=== PATIENT | male | born 1945 | race Caucasian/White ===

== ENCOUNTER → 2016-11-04 | Day surgery (SDC) | payer OTHER ==
[~2016-11-04] VITALS: Ht 170.2 cm; Wt 94.5 kg
[~2016-11-04] MED LIST: ACLI1AER3 PO; ALBU1AER9 PO; ASPCH81X PO; ATROPINE SULFATE 0.1 MG/ML 5ML SYR IV PRN; ATV/1 PO; EpHEDrine SULFATE INJ 50 MG/ML AMP IV PRN; FINA5TAB4 PO; FURO40TA3 PO; IPRA1AER2 INH; IPRASOL4 INH; LIDOCAINE HCL 2% 2 ML VIAL (20MG/ML) ONE; LISI20TA3 PO; METF850T PO; METO25TA3 PO; MONT1TAB3 PO; NVLGI7030 SC; OMEP20CA59 PO; OPTIRAY 320 IV PRN; PRED10TA PO; PROPOFOL IV EMULSION 10 MG/ML 20 ML VIAL IV ONE; SERT25TA PO; SIMV40TA4 PO; SODIUM CHLORIDE 0.9% 500ML 500 ML IV ONE; SUCCINYLCHOLINE CHLORIDE 20 MG/ML 10 ML VIAL IV ONE; TAMS0.4C38 PO
[2016-11-04 09:42] VITALS: Ht 170.2 cm; Wt 94.5 kg
--- NOTE | 2016-11-04 10:28 | Endo History and Physical ---
History & Physical Date of Service: Nov 04, 2016. Chief Complaint: Referring Physician: Francisca History of Present Illness abdominal pain for EGD Past Medical History Diabetes, Anxiety, High Cholesterol, Sleep Apnea, Hypertension, COPD, Other Past Surgical History Hx Cardiac Surgery: No Hx Internal Defibrillator: No Hx Pacemaker: No Hx Abdominal Surgery: No Hx of Implantable Prosthesis: No Hx Post-Op Nausea and Vomiting: No Hx Cancer Surgery: No Hx Thoracic Surgery: No Hx Orthopedic: No (back/hip) Hx Urinary Tract Surgery: No Family History None Social History Smoking Status: Former Smoker Hx Substance Use: No Hx Alcohol Use: No Allergies Coded Allergies: Codeine (Verified Allergy, Mild, from [facility] record, 11/04/16) Morphine and Related (Verified Allergy, Mild, from [facility] records, 11/04) Current Medications Reported Home Medications Medications Dose Route/Sig Max Daily Dose Days Date Category Toprol Xl (Metoprolol Succinate) 25 Mg Tabcr 1 Tab PO DAILY 30 05/29/15 Reported Duoneb (Ipratropium-Albuterol) 3 Ml Nebu 1 Treatment INH Q4H 05/23/15 Reported Combivent Respimat (Ipratropium-Albuterol) 1 Aer Aer 1 Puffs INH QID 05/23/15 Reported Zoloft (Sertraline HCl) 25 Mg Tab 25 Mg PO DAILY 05/23/15 Reported Tudorza Pressair (Aclidinium [place]) 400 Mcg/Act Aer 1 Inha PO BID 05/23/15 Reported Proair Hfa (Albuterol Sulfate) 108 Mcg/ Aer 1 Inhaler PO PRN 05/23/15 Reported Zocor (Simvastatin) 40 Mg Tab 1 Tab PO HS 30 05/23/15 Reported Prednisone 10 Mg Tab 10 Mg PO 05/23/15 Reported Aspirin Chewable (Aspirin) 81 Mg Chew 81 Mg PO DAILY 05/23/15 Reported Prilosec (Omeprazole) 20 Mg Capcr 1 Cap PO DAILY 90 05/23/15 Reported Proscar (Finasteride) 5 Mg Tab 1 Tab PO DAILY 30 05/23/15 Reported Novolog Mix 70/30 (Insulin Aspart Prota 70%/Aspart 30%) Susp 20 SC ACPM 05/23/15 Reported Novolog Mix 70/30 (Insulin Aspart Prota 70%/Aspart 30%) Susp 26 SC ACAM 05/23/15 Reported Singulair (Montelukast Sodium) 10 Mg Tab 1 Tab PO DAILY 90 05/23/15 Reported Lasix (Furosemide) 40 Mg Tab 1 Tab PO BID 30 05/23/15 Reported Flomax (Tamsulosin Hcl) 0.4 Mg Cap 1 Cap PO DAILY 30 05/23/15 Reported Glucophage (Metformin Hcl) 850 Mg Tab 850 Mg PO TID 05/23/15 Reported Ativan (Lorazepam) 1 Mg Tab 1 Mg PO TID 05/23/15 Reported Prinivil (Lisinopril) 20 Mg Tab 1 Tab PO DAILY 30 05/23/15 Reported Vital Signs Weight (Kilograms): 94.55 Height (Feet): 5 Height (Inches): 7 Date Time Temp Pulse Resp B/P Pulse Ox O2 Delivery O2 Flow Rate FiO2 11/04/16 09:40 37 92 16 192/86 96 Nasal Cannula 3 Physical Exam General Appearance: no apparent distress Respiratory/Chest: Auscultation: breath sounds normal Cardiovascular: Heart Auscultation: RRR Abdomen: Inspection & Palpation: soft, non-distended Assessment and Plan stable for EGD
--- NOTE | 2016-11-04 10:40 | Discharge Instructions ---
Endoscopy Patient Instructions Date / Procedure(s) Performed Nov 04, 2016. EGD Allergy Information Coded Allergies: Codeine (Verified Allergy, Mild, from [facility] record, 11/04/16) Morphine and Related (Verified Allergy, Mild, from [facility] records, 11/04) Discharge Date / Findings Nov 04, 2016. Normal study Medication Instructions Stopped Medication(s): etformin, no vitams Provider Instructions Activity Restrictions - No exercising or heavy lifting for 24 hours. - Do not drink alcohol the day of the procedure. - Do not drive a car or operate machinery until the day after the procedure. - Do not make any important decisions or sign important papers in 24 hours after the procedure. Following Day: - Return to full activity which may include returning to work/school. Diet Start your diet with liquids and light foods (jello, soup, juice, toast). Then eat your usual diet if not nauseated. Treatment For Common After Affects For mild abdominal pain, bloating, or excessive gas: - Rest - Eat lightly - Lie on right side Follow-Up Information Follow-up with Francisca as scheduled Anesthesia Information What You Should Know You have had a procedure that required some medicine to reduce anxiety and discomfort. This treatment is called moderate sedation. After receiving the treatment, you may be sleepy, but you will be able to breathe on your own. The effects of the treatment may last for several hours. Follow these instructions along with Activity/Diet recommendations noted above: * Do NOT do anything where dizziness or clumsiness would be dangerous. * Rest quietly at home today, then you can be up and about tomorrow. * Have a responsible person stay with you the rest of today. * You may have had an I.V. today. If so, you may take the dressing off later today. Recommendations Call your doctor if: * Trouble breathing * Continuous vomiting for more than 24 hours * Temperature above 101 degrees * Severe abdominal pain or bloating * Pain not relieved by pain medicine ordered * There is increased drainage or redness from any incision * A large amount of rectal bleeding greater than 2-3 tablespoons. (If you had a polyp/s removed or have hemorrhoids, a small amount of blood - from the rectum is to be expected.) * You have any unanswered questions or concerns. IN THE EVENT OF A SERIOUS EMERGENCY, GO TO THE NEAREST EMERGENCY ROOM Your discharge instructions were prepared by provider Shaheen Capone. Patient Instructions Signature Page Beto Recinos Patient (or Guardian) Signature/Date: I have read and understand the instructions given to me by my caregivers. Caregiver/RN/Doctor Signature/Date: The above-named patient and/or guardian has received patient instructions on this date. + Original Patient Signature Page (only) stays with chart. Please make copy for patient.
--- NOTE | 2016-11-04 10:42 | GI REPORT ---
Procedure Date: 11/04/2016 10:08 AM Procedure: Upper GI endoscopy Indications: Epigastric abdominal pain Medicines: See the Anesthesia note for documentation of the administered medications Complications: No immediate complications. Estimated Blood Loss: Estimated blood loss: none. Procedure: Pre-Anesthesia Assessment: - Prior to the procedure, a History and Physical was performed, and patient medications, allergies and sensitivities were reviewed. The patient's tolerance of previous anesthesia was reviewed. - The risks and benefits of the procedure and the sedation options and risks were discussed with the patient. All questions were answered and informed consent was obtained. - Patient identification and proposed procedure were verified prior to the procedure by the physician and the nurse. The procedure was verified in the pre-procedure area. - Pre-procedure physical examination revealed no contraindications to sedation. - After reviewing the risks and benefits, the patient was deemed in satisfactory condition to undergo the procedure. After obtaining informed consent, the endoscope was passed under direct vision. Throughout the procedure, the patient's blood pressure, pulse, and oxygen saturations were monitored continuously. The scope was introduced through the mouth, and advanced to the third part of duodenum. The upper GI endoscopy was accomplished without difficulty. The patient tolerated the procedure well. Findings: The esophagus was normal. The stomach was normal. The examined duodenum was normal. The cardia and gastric fundus were normal on retroflexion. Impression: - Normal esophagus. - Normal stomach. - No pyloric obstruction. - Normal examined duodenum. - No specimens collected. Recommendation: - Discharge patient to home. Shaheen Capone M.D. Shaheen Capone MD 11/04/2016 10:41:45 AM This report has been signed electronically. Note Initiated On: 11/04/2016 10:08 AM
[2016-11-04 11:10] VITALS: BP 147/74; PULSE 98; O2SAT 98
--- NOTE | 2016-11-04 11:12 | Anesthesiology Progress Note ---
Anesthesia Post Op Note Date & Time Nov 04, 2016 at 11:12 Vital Signs Pain Intensity: 0 Vital Signs Past 12 Hours Date Time Temp Pulse Resp B/P Pulse Ox O2 Delivery O2 Flow Rate FiO2 11/04/16 11:00 98 18 136/61 98 Nasal Cannula 3 11/04/16 10:42 93 18 118/63 95 Nasal Cannula 3 11/04/16 09:40 37 92 16 192/86 96 Nasal Cannula 3 Notes Mental Status: alert / awake / arousable, participated in evaluation Pt Amnestic to Procedure: Yes Nausea / Vomiting: adequately controlled Pain: adequately controlled Airway Patency, RR, SpO2: stable & adequate BP & HR: stable & adequate Hydration State: stable & adequate Anesthetic Complications: no major complications apparent
--- NOTE | 2016-11-04 14:26 | DIAGNOSTIC IMAGING REPORT ---
CT OF THE ABDOMEN AND PELVIS WITH CONTRAST CLINICAL HISTORY: Gastric outlet obstruction. Right lower quadrant abdominal pain. COMPARISON STUDY: CT of the abdomen and pelvis February 16, 2016. TECHNIQUE: Following IV administration of 92 mL of Optiray-320, axial images of the abdomen and pelvis were obtained from the lung bases to the proximal femurs. Images were reviewed in the axial, sagittal, and coronal planes. IV contrast was administered without complication. Oral contrast was administered. CT DOSE: 977.76 mGycm FINDINGS: The liver, spleen, adrenal glands, left kidney and pancreas are normal. There is a 4.6 cm right renal cyst. There is no hydronephrosis. There is no biliary or pancreatic ductal dilatation. No peripancreatic or pericholecystic infiltration is present. There are gallstones within the gallbladder. The gallbladder is not distended. There is no pericholecystic infiltration. The stomach is not distended. The caliber and wall thickness of small and large bowel are normal although images of the pelvis are degraded by streak artifact from bilateral hip arthroplasties. The appendix is normal. No lymphadenopathy is noted within the abdomen or the pelvis. No suspicious skeletal lesions are identified. IMPRESSION: 1. No acute process within the abdomen or pelvis. 2. Cholelithiasis. 3. 4.6 cm right renal cyst. 4. No bowel obstruction. 5. No gastric distention. Sensitivity for detection of mucosal lesions within the stomach is diminished given CT technique although no definite abnormality is identified. Electronically signed by: James Jaime M.D. 11/04/2016 2:24 PM Dictated Date/Time: 11/04/2016 2:16 PM
== END | disposition home or self-care (01) ==
LOC: C.GI 09:17
PROVIDERS: ATTEND Internal Medicine Gastroenterology
DX: R10.13 Epigastric pain (principal); E11.9 Type 2 diabetes mellitus without complications; E78.00 Pure hypercholesterolemia, unspecified; I10 Essential (primary) hypertension; J44.9 Chronic obstructive pulmonary disease, unspecified; G47.30 Sleep apnea, unspecified; Z87.891 Personal history of nicotine dependence